=== PATIENT | male | born 1945 | race Caucasian/White ===

== ENCOUNTER 2016-04-14 13:30 | Day surgery (SDC) | payer MEDICARE, OTHER ==
[2016-04-14] MEDS ORDERED: LACTATED RINGERS 1,000 ML IV ONE (14:33)
[2016-04-14] MEDS ORDERED: BENZOCAINE/TETRACAINE/BUTAMBEN SPRAY 56 GM TOP ONE (16:34)
[2016-04-14] MEDS ORDERED: LIDO GARGLE 30 ML BOTTLE PO ONE (16:35)
[2016-04-14] MEDS ORDERED: MIDAZOLAM 2 MG/2 ML VIAL IVP ONE (17:00)
[2016-04-14] MEDS ORDERED: fentaNYL 100 MCG/2 ML VIAL IVP ONE (17:00)
== END 2016-04-14 13:31 | disposition home or self-care (01) ==
PROC: 0DB68ZX Excision of Stomach, Via Natural or Artificial Opening Endoscopic, Diagnostic (ICD-10-PCS; 2016-04-14)
PROC: 0DB58ZX Excision of Esophagus, Via Natural or Artificial Opening Endoscopic, Diagnostic (ICD-10-PCS; principal; 2016-04-14 14:25)
DX: R10.13 Epigastric pain (principal); K92.1 Melena; K21.9 Gastro-esophageal reflux disease without esophagitis; R12 Heartburn; K44.9 Diaphragmatic hernia without obstruction or gangrene; Z79.82 Long term (current) use of aspirin; G47.33 Obstructive sleep apnea (adult) (pediatric); Z85.46 Personal history of malignant neoplasm of prostate; Z87.891 Personal history of nicotine dependence; K29.70 Gastritis, unspecified, without bleeding; I10 Essential (primary) hypertension
CPT/HCPCS: 43239; 87081; A9270; J7120

== ENCOUNTER 2016-06-04 11:12 | Outpatient (CLI) | payer MEDICARE, OTHER | END 2016-06-04 11:13 | DX: E11.9 Type 2 diabetes mellitus without complications (principal) ==

== ENCOUNTER 2016-07-21 09:35 | Outpatient (CLI) | payer MEDICARE, OTHER | END 2016-07-21 09:36 | disposition home or self-care (01) | DX: G47.33 Obstructive sleep apnea (adult) (pediatric) (principal) | CPT/HCPCS: 99203; G0463 ==

== ENCOUNTER 2016-07-23 11:25 | Day surgery (SDC) | payer MEDICARE, OTHER ==
[2016-07-23] MEDS ORDERED: LACTATED RINGERS 1,000 ML IV ONE (12:03)
[2016-07-23] MEDS ORDERED: fentaNYL 100 MCG/2 ML VIAL IVP ONE (13:18)
[2016-07-23] MEDS ORDERED: MIDAZOLAM 2 MG/2 ML VIAL IVP ONE (13:18)
== END 2016-07-23 11:26 | disposition home or self-care (01) ==
PROC: 0DB68ZX Excision of Stomach, Via Natural or Artificial Opening Endoscopic, Diagnostic (ICD-10-PCS; 2016-07-23)
PROC: 0DB38ZX Excision of Lower Esophagus, Via Natural or Artificial Opening Endoscopic, Diagnostic (ICD-10-PCS; principal; 2016-07-23 12:30)
DX: K22.710 Barrett's esophagus with low grade dysplasia (principal); K44.9 Diaphragmatic hernia without obstruction or gangrene; K21.9 Gastro-esophageal reflux disease without esophagitis; I10 Essential (primary) hypertension; E11.9 Type 2 diabetes mellitus without complications; Z79.82 Long term (current) use of aspirin
CPT/HCPCS: 43239; J7120

== ENCOUNTER 2016-08-08 21:46 | Outpatient (CLI) | payer MEDICARE, OTHER | END 2016-08-08 21:47 | disposition home or self-care (01) | LOC: SC 21:46 | PROVIDERS: ATTEND Internal Medicine Pulmonary Disease | DX: G47.33 Obstructive sleep apnea (adult) (pediatric) (principal); G47.61 Periodic limb movement disorder; Z68.30 Body mass index [BMI] 30.0-30.9, adult | CPT/HCPCS: 95810 ==

== ENCOUNTER 2016-09-08 14:59 | Outpatient (CLI) | payer MEDICARE, OTHER | END 2016-09-08 15:00 | disposition home or self-care (01) | LOC: SC 14:59 | PROVIDERS: ATTEND Internal Medicine Pulmonary Disease | DX: G47.33 Obstructive sleep apnea (adult) (pediatric) (principal) | CPT/HCPCS: 99213; G0463; 99212 ==

== ENCOUNTER 2016-10-02 21:47 | Outpatient (CLI) | payer MEDICARE, OTHER | END 2016-10-02 21:48 | disposition home or self-care (01) | LOC: SC 21:47 | PROVIDERS: ATTEND Internal Medicine Pulmonary Disease | DX: G47.33 Obstructive sleep apnea (adult) (pediatric) (principal); G47.61 Periodic limb movement disorder; Z68.30 Body mass index [BMI] 30.0-30.9, adult | CPT/HCPCS: 95811 ==

== ENCOUNTER 2016-10-20 14:58 | Outpatient (CLI) | payer MEDICARE, OTHER | END 2016-10-20 14:59 | disposition home or self-care (01) | LOC: SC 14:58 | PROVIDERS: ATTEND Internal Medicine Pulmonary Disease | DX: G47.33 Obstructive sleep apnea (adult) (pediatric) (principal) | CPT/HCPCS: 99213; G0463; 99212 ==

== ENCOUNTER 2016-12-16 15:10 | Outpatient (CLI) | payer MEDICARE, OTHER | END 2016-12-16 15:11 | disposition home or self-care (01) | LOC: SC 15:10 | PROVIDERS: ATTEND Nurse Practitioner Family | DX: G47.33 Obstructive sleep apnea (adult) (pediatric) (principal) | CPT/HCPCS: 99214; G0463; 99212 ==

== ENCOUNTER 2017-07-22 07:08 | Day surgery (SDC) | payer MEDICARE, OTHER ==
[2017-07-22] MEDS ORDERED: LACTATED RINGERS 1,000 ML IV ONE (07:21)
[2017-07-22] MEDS ORDERED: MIDAZOLAM 2 MG/2 ML VIAL IVP ONE (08:38)
[2017-07-22] MEDS ORDERED: fentaNYL 100 MCG/2 ML VIAL IVP ONE (08:38)
[2017-07-22 09:24] VITALS: BP 126/81
== END 2017-07-22 07:09 | disposition home or self-care (01) ==
LOC: SDS 07:08
PROVIDERS: ATTEND Internal Medicine
PROC: 0DB58ZX Excision of Esophagus, Via Natural or Artificial Opening Endoscopic, Diagnostic (ICD-10-PCS; principal; 2017-07-22 08:30)
DX: K44.9 Diaphragmatic hernia without obstruction or gangrene (principal); K22.70 Barrett's esophagus without dysplasia; E11.9 Type 2 diabetes mellitus without complications; I10 Essential (primary) hypertension; K21.9 Gastro-esophageal reflux disease without esophagitis; Z87.891 Personal history of nicotine dependence
CPT/HCPCS: 43239; J7120; 88305

== ENCOUNTER 2017-12-25 07:59 | Outpatient (CLI) | payer MEDICARE, OTHER ==
[2017-12-25 12:15] LABS: BASOPHILS # (AUTO) 0.1 10^3/uL (0.0-0.1); BASOPHILS % (AUTO) 1.2 %; EOSINOPHILS # (AUTO) 0.7 10^3/uL (0.0-0.7); EOSINOPHILS % (AUTO) 12.1 %; HGB - HEMOGLOBIN 16.6 g/dL (14.0-18.0); LYMPHOCYTES # (AUTO) 1.5 10^3/uL (1.5-3.5); LYMPHOCYTES % (AUTO) 25.6 %; MEAN CORPUSCULAR HEMOGLOBIN 29.9 pg (27.0-31.0); MEAN CORPUSCULAR HGB CONC 34.4 g/dL (32.0-36.0); MEAN CORPUSCULAR VOLUME 86.9 fL (80.0-94.0); MEAN PLATELET VOLUME 8.6 fL (7.4-11.4); MONOCYTES # (AUTO) 0.4 10^3/uL (0.0-1.0); MONOCYTES % (AUTO) 7.9 %; NEUTROPHILS % (AUTO) 53.2 %; PLT - PLATELET COUNT 221 10^3/uL (130-450); RED BLOOD COUNT 5.54 10^6/uL (4.70-6.10); RED CELL DISTRIBUTION WIDTH 13.8 % (12.0-15.0); WHITE BLOOD COUNT 5.7 x10^3/uL (4.8-10.8)
[2017-12-25 12:52] LABS: ALBUMIN 4.2 g/dL (3.2-5.5); ALBUMIN/GLOBULIN RATIO 1.4 (1.0-2.2); ALKALINE PHOSPHATASE 66 IU/L (42-121); ALT ALANINE AMINOTRANSFERASE 25 IU/L (10-60); AST ASPARTATE AMINOTRANSFERASE 22 IU/L (10-42); BILIRUBIN,TOTAL 0.8 mg/dL (0.2-1.0); BUN - BLOOD UREA NITROGEN 18 mg/dL (6-20); CALCIUM 9.2 mg/dL (8.5-10.3); CARBON DIOXIDE - CO2 29 mmol/L (21-32); CHLORIDE 103 mmol/L (101-111); CHOL/HDL RATIO 3.9 (<5.0); CHOLESTEROL 234 mg/dL; CREATININE 1.2 mg/dL (0.6-1.2); GFR - MDRD 60 (>89); GLUCOSE 152 mg/dL (70-100); HDL CHOLESTEROL 60 mg/dL; LDL CHOLESTEROL,CALCULATED 128 mg/dL; LDL/HDL RATIO 2.1 (<3.6); SODIUM 140 mmol/L (135-145); TOTAL PROTEIN 7.2 g/dL (6.7-8.2); VLDL CHOLESTEROL 46 mg/dL
[2017-12-25 13:29] LABS: HEMOGLOBIN A1C 0.81 g/dL; HEMOGLOBIN A1C % 6.3 % (4.6-6.2)
== END 2017-12-25 08:00 | disposition home or self-care (01) ==
LOC: LAB.WCP 07:59
PROVIDERS: ATTEND Family Medicine
DX: R41.3 Other amnesia (principal); E11.9 Type 2 diabetes mellitus without complications; C61 Malignant neoplasm of prostate; K22.710 Barrett's esophagus with low grade dysplasia; G47.30 Sleep apnea, unspecified
CPT/HCPCS: 36415; 80053; 80061; 82043; 83036; 83721; 84153; 84443; 85025

== ENCOUNTER 2018-02-04 10:29 | Outpatient (CLI) | payer MEDICARE, OTHER | END 2018-02-04 10:30 | disposition home or self-care (01) | LOC: SC 10:29 | PROVIDERS: ATTEND Nurse Practitioner Family | DX: G47.33 Obstructive sleep apnea (adult) (pediatric) (principal) | CPT/HCPCS: 99213; G0463; 99212 ==

== ENCOUNTER 2018-04-14 08:00 | Outpatient (CLI) | payer MEDICARE, OTHER ==
[2018-04-16 13:07] LABS: HEPATITIS C ANTIBODY NON-REACTIVE (NON-REACTIVE)
== END 2018-04-14 23:59 | disposition home or self-care (01) ==
LOC: LAB.WCP 08:00
PROVIDERS: ATTEND Family Medicine
DX: Z00.00 Encounter for general adult medical examination without abnormal findings (principal)
CPT/HCPCS: 36415; 86803

== ENCOUNTER 2020-07-31 08:00 | Outpatient (CLI) | payer MEDICARE, OTHER ==
[2020-07-31 12:34] LABS: ESTIMATED AVERAGE GLUCOSE 154 mg/dL (70-100)
[2020-07-31 13:02] LABS: BASOPHILS # (AUTO) 0.1 10^3/uL (0.0-0.1); BASOPHILS % (AUTO) 1.1 %; EOSINOPHILS # (AUTO) 0.4 10^3/uL (0.0-0.7); EOSINOPHILS % (AUTO) 7.9 %; HCT - HEMATOCRIT 49.7 % (42.0-52.0); HGB - HEMOGLOBIN 16.4 g/dL (14.0-18.0); LYMPHOCYTES # (AUTO) 1.4 10^3/uL (1.5-3.5); LYMPHOCYTES % (AUTO) 25.3 %; MEAN CORPUSCULAR HEMOGLOBIN 29.3 pg (27.0-31.0); MEAN CORPUSCULAR VOLUME 88.9 fL (80.0-94.0); MEAN PLATELET VOLUME 10.5 fL (7.4-11.4); MONOCYTES # (AUTO) 0.4 10^3/uL (0.0-1.0); MONOCYTES % (AUTO) 7.2 %; NEUTROPHILS # (AUTO) 3.2 10^3/uL (1.5-6.6); NEUTROPHILS % (AUTO) 58.1 %; PLT - PLATELET COUNT 243 10^3/uL (130-450); RED BLOOD COUNT 5.59 10^6/uL (4.70-6.10); WHITE BLOOD COUNT 5.5 x10^3/uL (4.8-10.8)
[2020-07-31 13:30] LABS: ALBUMIN 4.2 g/dL (3.2-5.5); ALBUMIN/GLOBULIN RATIO 1.4 (1.0-2.2); ALKALINE PHOSPHATASE 67 IU/L (42-121); ALT ALANINE AMINOTRANSFERASE 28 IU/L (10-60); AST ASPARTATE AMINOTRANSFERASE 25 IU/L (10-42); BILIRUBIN,TOTAL 0.9 mg/dL (0.2-1.0); BUN - BLOOD UREA NITROGEN 14 mg/dL (6-20); CALCIUM 9.3 mg/dL (8.5-10.3); CARBON DIOXIDE - CO2 28 mmol/L (21-32); CHLORIDE 104 mmol/L (101-111); CHOL/HDL RATIO 3.1 (<5.0); CHOLESTEROL 199 mg/dL; CREATININE 1.1 mg/dL (0.6-1.2); GFR - MDRD 66 (>89); GLUCOSE 134 mg/dL (70-100); HDL CHOLESTEROL 65 mg/dL; LDL CHOLESTEROL,CALCULATED 116 mg/dL; LDL/HDL RATIO 1.8 (<3.6); POTASSIUM 4.2 mmol/L (3.5-5.0); SODIUM 141 mmol/L (135-145); TOTAL PROTEIN 7.1 g/dL (6.7-8.2); TRIGLYCERIDES 91 mg/dL; VLDL CHOLESTEROL 18 mg/dL
[2020-07-31 13:32] LABS: THYROID STIMULATING HORMONE 1.51 uIU/mL (0.34-5.60)
== END 2020-07-31 23:59 | disposition home or self-care (01) ==
LOC: LAB.WCP 08:00
PROVIDERS: ATTEND Family Medicine
DX: I10 Essential (primary) hypertension (principal); R73.03 Prediabetes; K22.710 Barrett's esophagus with low grade dysplasia; G47.30 Sleep apnea, unspecified; C61 Malignant neoplasm of prostate; E78.5 Hyperlipidemia, unspecified
CPT/HCPCS: 36415; 80053; 80061; 83036; 83721; 84153; 84443; 85025

== ENCOUNTER 2021-03-07 08:43 | Outpatient (CLI) | payer MEDICARE, OTHER ==
[2021-03-07 13:30] LABS: ESTIMATED AVERAGE GLUCOSE 183 mg/dL (70-100)
[2021-03-07 13:31] LABS: CALCIUM 9.5 mg/dL (8.5-10.3); CREATININE 1.1 mg/dL (0.6-1.2)
== END 2021-03-07 23:59 | disposition home or self-care (01) ==
LOC: LAB.WCP 08:43
PROVIDERS: ATTEND Family Medicine
DX: E11.9 Type 2 diabetes mellitus without complications (principal)
CPT/HCPCS: 36415; 80048; 83036

== ENCOUNTER 2021-03-13 08:02 | Outpatient (CLI) | payer MEDICARE, OTHER ==
--- NOTE | 2021-03-13 09:40 | XRAY Report ---
PROCEDURE: Chest 2 View X-Ray INDICATIONS: SHORTNESS OF BREATH TECHNIQUE: 2 view(s) of the chest. COMPARISON: None. FINDINGS: SUPPORT DEVICES: None. LUNGS/PLEURA: No focal consolidation, pleural effusion or space-occupying pneumothorax. MEDIASTINUM: The cardiomediastinal silhouette is within normal limits. BONES/SOFT TISSUES: No acute abnormality. IMPRESSION: 1.No acute cardiopulmonary abnormality. Reviewed by: Cheng Quinn MD on 03/13/2021 9:39 AM [facility] Approved by: Cheng Quinn MD on 03/13/2021 9:39 AM [facility] Station ID: [id number]
== END 2021-03-13 08:03 | disposition home or self-care (01) ==
LOC: DI.N 08:02
PROVIDERS: ATTEND Family Medicine
DX: R06.2 Wheezing (principal)

== ENCOUNTER 2021-06-21 11:04 | Outpatient (CLI) | payer MEDICARE, OTHER ==
[2021-06-21 12:02] VITALS: BP 130/73
--- NOTE | 2021-06-21 12:02 | SLEEP CARE CONSULTATION ---
Information from patient questionnaire entered by Rubio Rasmussen MA. I have reviewed and concur with the information entered by Rubio Rasmussen MA. This document represents the service I personally performed and the decisions made by me, Wendie Reyna ARNP. History of Present Illness Service Date and Time: 06/21/2021 1104 Reason for Visit: New patient (LAST SEEN IN 2018, CURRENTLY ON CPAP, RELL (ROTECH), ), sleep apnea on CPAP therapy, Other (UPDATE SUPPLIES) Chief Complaint: reports: Other (Update supplies) Usual bedtime: 900-700 Snores at night: Yes Observed to quit breathing while asleep: Yes Sleeps alone due to snoring: No Number of times waking at night: 2 Reasons for waking at night: reports: Bathroom Toss, Turn, or Twitch while sleeping: Yes Recalls having dreams: Yes Usually gets out of bed at: 0730 Feels refreshed in the morning: Yes Morning headache: No Sleepy or fatigued during the day: Yes Ever fallen asleep while driving: No Takes day naps: Yes Dreams during day naps: No Prior sleep studies: Yes (2016, POLY) Year and Where: [facility], 2005 Additional HPI information: JOSEE ZARAGOZA was previously diagnosed to have mild, AHI 10.3, obstructive sleep apnea-hypopnea syndrome and comes in today to re-establish care for CPAP therapy. - Parasomnia Symptoms Ever been unable to move upon waking from sleep: No Walks in sleep: No Talks in sleep: No Ever acted out dreams in sleep: No Ever felt weak in the knees when startled or emotional: No Bothered by creepy, crawly, restless sensations in legs: No Problems with memory or concentration: Yes CPAP Compliance Data Compliance data discussion: SEE DATA FROM RELL, 09/2018 - 03/2019, ROTECH, 98.3 COMPLIANT, AHI 3.7 with pressure set at 8.0 cmH2O. Patient is not happy with [employer] who have not wanted to deal with him since his machine is on a recall. He uses a Dreamwear Wisp mask. He is needing supplies. He is eligible for a new device in 10/2021. He has for life who may go ahead and replace his recalled device. He has been using a Remstar he borrowed because of the Dreamstation being on recall. Subjective Missed days of use due to: reports: other (recall) Patient concerns: denies: aerophagia, mask discomfort, air blowing in eyes, mask leak noise, condensation in mask/hose, nasal congestion, dry mouth, nose, throat, epistaxis, other Observed to snore while using device: No Current pressure setting perceived as: comfortable On therapy, patient: reports: sleeping better, awakening more refreshed, being more awake and alert during the day, more rested overall. 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 Patient is and lives in [place]. Have you smoked in the past 12 months: No Alcohol use: Yes Alcohol amount and frequency: 1-4 X WEEKLY Caffeine use: Yes Caffeine amount and frequency: 2 X DAILY Family History Family history of sleep disordered breathing: Yes Family Hx Sleep Apnea: Sibling: Sleep apnea - Treated Allergies and Home Medications Known drug allergies: No Drug allergies reviewed: Yes Home medication list reviewed: Yes Allergy and home medication list: Allergies lactose Adverse Reaction (Verified 07/23/16 12:14) Rash peanuts Adverse Reaction (Uncoded 07/23/16 12:14) Edema Medications: Lisinopril 10 mg Pantoprazole 40 mg Aspirin 81 mg Review of Systems Weight loss over past 5 years: 10 lbs Urinary: reports: frequency Ear/Nose/Throat: reports: wisdom teeth removed Musculoskeletal: reports: joint pain Immunologic: reports: sneezing, allergies to food or environment Physical Exam Vital signs obtained and entered by: Hayden RASMUSSEN CMA AAWI Blood Pressure: 130/73 (RIGHT, PULSE 77, RESP 18, ) Cuff size: wrist Heart Rate: 74 O2 Saturation: 97 (PAPER) Height: 5 ft 10 in Weight: 200 lb Body Mass Index: 28.7 BMI Classification: Overweight Impression and Plan 1. Obstructive Sleep Apnea-Hypopnea Syndrome, mild, with probable good treatment compliance and unknown apnea control. On CPAP therapy, the patient has better sleep quality and is more rested overall. He has a Dreamstation that is on the recall that he has not been using since February 2021. He has been using an old RemStar by [employer] for the last 4+ months regularly. Patient has already registered their device for the recall. Patient denies any black particles seen in machine or hoses, any unusual odors coming from device. Patient has not experienced any physical symptoms such as upper airway irritation, headache, skin or eye irritation, asthma, nausea/vomiting, difficulty breathing or chest pain. If patient is not able to sleep due to waking up choking, gasping for air or other respiratory distress that they may decide to continue using it until it is either replaced or repaired. Since the patients current machine is almost 5 years old, updated , the patient would like to try to update their device with a device that is not on the recall. He also has Medicare and [employer] which may replace the recalled device sooner. I will write a prescription order to update machine and supplies. Compliance guidelines for new device and follow up discussed. Patient would like to change from his current DME. Patient was informed that another DME can be used. I will have my systems coordinator inform of DME options. A DWO prescription will then be made. Patient advised to contact this office if further supply problems. Patient voiced understanding and agreement with plan. Patient's apnea severity and rationale for treatment to reduce apnea, improve sleep quality and reduce cardiovascular and cerebrovascular events was reviewed. I also reviewed the benefit of consistent device use of CPAP for hypertension and gastric reflux. Patient was encouraged to try to lose weight. * Continue CPAP pressure at 8 cmH2O * Update machine * Update supplies * Transfer DME * Notify me if snoring with mask or feeling that the pressure is too much or too little * Attempt to lose weight * Call this office if any problems using CPAP * Return for follow up one month after obtaining new device, or sooner if concerns arise Counseling Topics: Spare mask, Weight loss health impact Visit Type: In Office Time Spent with Patient (minutes): 36 Provider Statement: I spent 100% of the Face to Face Visit with the patient with greater than 50% spent counseling the patient and coordination of care.
== END 2021-06-21 11:05 | disposition home or self-care (01) ==
LOC: SC 11:04
PROVIDERS: ATTEND Nurse Practitioner Family
DX: G47.33 Obstructive sleep apnea (adult) (pediatric) (principal); E66.3 Overweight; Z68.28 Body mass index [BMI] 28.0-28.9, adult
CPT/HCPCS: 99203; G0463; 99212

== ENCOUNTER 2021-09-03 09:43 | Outpatient (CLI) | payer MEDICARE, OTHER ==
[2021-09-03 11:57] LABS: BASOPHILS % (AUTO) 0.7 %; EOSINOPHILS # (AUTO) 0.5 10^3/uL (0.0-0.7); EOSINOPHILS % (AUTO) 8.5 %; HCT - HEMATOCRIT 50.1 % (42.0-52.0); HGB - HEMOGLOBIN 16.8 g/dL (14.0-18.0); LYMPHOCYTES # (AUTO) 1.3 10^3/uL (1.5-3.5); MEAN CORPUSCULAR HEMOGLOBIN 29.3 pg (27.0-31.0); MEAN CORPUSCULAR HGB CONC 33.5 g/dL (32.0-36.0); MEAN CORPUSCULAR VOLUME 87.4 fL (80.0-94.0); MEAN PLATELET VOLUME 10.1 fL (7.4-11.4); MONOCYTES # (AUTO) 0.4 10^3/uL (0.0-1.0); MONOCYTES % (AUTO) 6.8 %; NEUTROPHILS # (AUTO) 3.2 10^3/uL (1.5-6.6); NEUTROPHILS % (AUTO) 59.8 %; PLT - PLATELET COUNT 230 10^3/uL (130-450); RED BLOOD COUNT 5.73 10^6/uL (4.70-6.10); RED CELL DISTRIBUTION WIDTH 13.3 % (12.0-15.0); WHITE BLOOD COUNT 5.4 x10^3/uL (4.8-10.8)
[2021-09-03 12:16] LABS: ALBUMIN 4.1 g/dL (3.2-5.5); ALBUMIN/GLOBULIN RATIO 1.3 (1.0-2.2); ALKALINE PHOSPHATASE 62 IU/L (42-121); ALT ALANINE AMINOTRANSFERASE 40 IU/L (10-60); AST ASPARTATE AMINOTRANSFERASE 24 IU/L (10-42); BILIRUBIN,TOTAL 0.8 mg/dL (0.2-1.0); BUN - BLOOD UREA NITROGEN 15 mg/dL (6-20); CALCIUM 9.6 mg/dL (8.5-10.3); CARBON DIOXIDE - CO2 30 mmol/L (21-32); CHLORIDE 103 mmol/L (101-111); CHOL/HDL RATIO 3.6 (<5.0); CHOLESTEROL 208 mg/dL; CREATININE 1.2 mg/dL (0.6-1.2); GFR - MDRD 59 (>89); GLUCOSE 166 mg/dL (70-100); HDL CHOLESTEROL 58 mg/dL; LDL CHOLESTEROL,CALCULATED 134 mg/dL; LDL/HDL RATIO 2.3 (<3.6); POTASSIUM 4.4 mmol/L (3.5-5.0); SODIUM 141 mmol/L (135-145); TOTAL PROTEIN 7.3 g/dL (6.7-8.2); TRIGLYCERIDES 79 mg/dL; VLDL CHOLESTEROL 16 mg/dL
[2021-09-03 12:17] LABS: THYROID STIMULATING HORMONE 1.21 uIU/mL (0.34-5.60)
[2021-09-03 12:22] LABS: ESTIMATED AVERAGE GLUCOSE 174 mg/dL (70-100); HEMOGLOBIN A1c% 7.7 % (4.27-6.07)
== END 2021-09-03 09:44 | disposition home or self-care (01) ==
LOC: LAB.N 09:43
PROVIDERS: ATTEND Family Medicine
DX: C61 Malignant neoplasm of prostate (principal); R06.02 Shortness of breath; E11.9 Type 2 diabetes mellitus without complications; I10 Essential (primary) hypertension
CPT/HCPCS: 36415; 80053; 80061; 83036; 83721; 84153; 84443; 85025

== ENCOUNTER 2022-06-12 08:39 | Outpatient (CLI) | payer MEDICARE, OTHER ==
[2022-06-12 12:03] LABS: CALCIUM 9.5 mg/dL (8.5-10.3); CREATININE 1.1 mg/dL (0.6-1.2); POTASSIUM 4.3 mmol/L (3.5-5.0)
[2022-06-12 12:43] LABS: ESTIMATED AVERAGE GLUCOSE 148 mg/dL (70-100); HEMOGLOBIN A1c% 6.8 % (4.27-6.07)
== END 2022-06-12 08:40 | disposition home or self-care (01) ==
LOC: LAB.N 08:39
PROVIDERS: ATTEND Family Medicine
DX: E11.65 Type 2 diabetes mellitus with hyperglycemia (principal)
CPT/HCPCS: 36415; 80048; 83036

== ENCOUNTER 2022-07-03 14:50 | Outpatient (CLI) | payer MEDICARE, OTHER ==
[2022-07-03] MEDS ORDERED: ALBUTEROL 1 PUFF INH STA (17:21)
== END 2022-07-03 14:51 | disposition home or self-care (01) ==
LOC: RT 14:50
PROVIDERS: ATTEND Family Medicine
DX: R06.02 Shortness of breath (principal)
CPT/HCPCS: 94060; 94729

== ENCOUNTER 2022-07-07 14:39 | Outpatient (CLI) | payer MEDICARE, OTHER ==
--- NOTE | 2022-07-07 15:07 | XRAY Report ---
PROCEDURE: Chest 2 View X-Ray INDICATIONS: SOB TECHNIQUE: 2 views of the chest were acquired. COMPARISON: Chest x-ray 1222 FINDINGS: Surgical changes and devices: None. Lungs and pleura: No pleural effusions or pneumothorax. Lungs are clear. Mediastinum: Mediastinal contours appear normal. Heart size is minimally prominent. Bones and chest wall: No suspicious bony lesions. Overlying soft tissues appear unremarkable. IMPRESSION: No acute pulmonary process. Reviewed by: Demetra Kurtz MD on 07/07/2022 3:06 PM PDT Approved by: Demetra Kurtz MD on 07/07/2022 3:06 PM PDT Station ID: [id number]
== END 2022-07-07 14:40 | disposition home or self-care (01) ==
LOC: DI 14:39
PROVIDERS: ATTEND Family Medicine
DX: R06.02 Shortness of breath (principal)

== ENCOUNTER 2022-08-27 07:56 | Outpatient (CLI) | payer MEDICARE, OTHER | END 2022-08-27 07:57 | disposition home or self-care (01) | LOC: DI 07:56 | PROVIDERS: ATTEND Family Medicine | DX: R06.02 Shortness of breath (principal); I08.2 Rheumatic disorders of both aortic and tricuspid valves | CPT/HCPCS: 93306 ==

== ENCOUNTER 2022-09-17 09:37 | Outpatient (CLI) | payer MEDICARE, OTHER ==
[2022-09-17 12:25] LABS: CALCIUM 9.6 mg/dL (8.5-10.3); CREATININE 1.1 mg/dL (0.6-1.2); POTASSIUM 4.1 mmol/L (3.5-5.0)
== END 2022-09-17 09:38 | disposition home or self-care (01) ==
LOC: LAB.N 09:37
PROVIDERS: ATTEND Family Medicine
DX: R06.09 Other forms of dyspnea (principal)
CPT/HCPCS: 36415; 80048; 83880

== ENCOUNTER 2022-12-10 09:36 | Outpatient (CLI) | payer MEDICARE, OTHER ==
--- NOTE | 2022-12-10 10:00 | Sleep Patient Instructions ---
Sleep Center Visit Summary - Patient Visit Information Reason for Visit: Annual visit for PAP therapy - Patient Instructions Additional Instructions: You will continue with CPAP therapy with pressure set at 8 cmH2O. A supply prescription will be updated with your DME. We encourage you to continue to try to lose weight. Please follow up with the sleep care office in 1 year. - Clinic Information Contact: [facility] [address] [place] [address] [email or web address] T: [phone]
--- NOTE | 2022-12-10 10:03 | SLEEP CARE CONSULTATION ---
Information from patient questionnaire entered by Yuni Voss. I have reviewed and concur with the information entered by Yuni Voss. This document represents the service I personally performed and the decisions made by , Wendie Reyna ARNP. History of Present Illness Service Date and Time: 12/10/2022 0936 Previous diagnosis: Mild, Obstructive Sleep Apnea-Hypopnea Syndrome AHI: 10.3 (2016) Reason for follow up: annual (LAST SEEN 06/2021) Equipment type: CPAP (ResMed Airsense 10, s/u 03/2022; NEEDED SD CARD) Equipment obtained from: Other ([facility]; getting supplies as needed) Mask style: Nasal (extra large; over the nose) Backup mask available: Yes (old mask) Last cushion change: 2 months Prior sleep studies: Yes (2016, POLY) Year and Where: [facility], 2005 HPI additional information: JOSEE ZARAGOZA was diagnosed to have mild, AHI 10.3, obstructive sleep apnea- hypopnea syndrome and returned today with spouse for CPAP therapy annual follow- up. Sleep Study - Results Prior sleep studies: Yes (2016, POLY) Year and Where: [facility], 2005 CPAP Compliance Data - Data Reviewed with Patient Average duration of nightly device use: 10 hours 49 minutes Compliance rate %: 84 (152/180 days used) Current pressure setting (cmH2O): 8 Average residual AHI: 2.4 Central apnea: 0.2 Obstructive apnea: 1 Hypopnea: 0.7 Average large leak: 12.9 L/min Compliance data discussion: Uses his Dreamstation that has been recertified on days he is not using his ResMed because he is traveling. Subjective Missed days of use due to: reports: travel, other (using other CPAP) Patient concerns: denies: aerophagia, mask discomfort, air blowing in eyes, mask leak noise, condensation in mask/hose, nasal congestion, dry mouth, nose, throat, epistaxis Observed to snore while using device: No Current pressure setting perceived as: comfortable On therapy, patient: reports: sleeping better, awakening more refreshed, being more awake and alert during the day, more rested overall. denies: drowsiness while driving Initial Austin Sleepiness Scale score: 4 (05/2021) Current Austin Sleepiness Scale score: 5 (12/10/22) Allergies and Home Medications Known drug allergies: No Drug allergies reviewed: Yes Home medication list reviewed: Yes (no changes) Allergy and home medication list: Allergies lactose Adverse Reaction (Verified 12/09/22 13:33) Rash peanuts Adverse Reaction (Uncoded 12/09/22 13:33) Edema Review of Systems Review of systems same as previous: Yes (N/A) Physical Exam Vital signs obtained and entered by: ELLA Johnson MA Blood Pressure: 138/80 (LEFT ARM) Cuff size: regular Heart Rate: 82 O2 Saturation: 96 Height: 5 ft 10 in Weight: 216 lb 6.4 oz Body Mass Index: 31.0 BMI Classification: Obese Impression and Plan 1. Obstructive Sleep Apnea-Hypopnea Syndrome, mild, with good treatment compliance and good apnea control. On CPAP therapy, the patient has better sleep quality and is more rested overall. Patient has significant improvement of their sleep apnea and is satisfied with current CPAP therapy. Patient denies problems with oral dryness, nasal congestion, epistaxis, skin irritation or aerophagia. Patient's apnea severity and rationale for treatment to reduce apnea, improve sleep quality and reduce cardiovascular and cerebrovascular events was reviewed. I also reviewed the benefit of consistent device use of CPAP for hypertension, borderline diabetes and gastric reflux. 2. Obesity, unspecified. Currently patients BMI is 31. Obesity increases the risk of apnea, CPAP pressure requirements and overall health risks especially cardiovascular and diabetes. Thus patient is advised to lose weight. * Continue CPAP pressure at 8 cmH2O * Update supplies * Notify me if snoring with mask or feeling that the pressure is too much or too little * Attempt to lose weight * Call this office if any problems using CPAP * Return for follow up in 1 year, or sooner if concerns arise Counseling Topics: Spare mask, Weight loss health impact Prescriptions: Device supplies Follow up with Sleep Care in: 1 year Visit Type: In Office Time Spent with Patient (minutes): 14 Provider Statement: I spent 100% of the Face to Face Visit with the patient with greater than 50% spent counseling the patient and coordination of care.
[2022-12-10 10:05] VITALS: BP 138/80; O2SAT 96
== END 2022-12-10 09:37 | disposition home or self-care (01) ==
LOC: SC 09:36
PROVIDERS: ATTEND Nurse Practitioner Family
DX: G47.33 Obstructive sleep apnea (adult) (pediatric) (principal); E66.9 Obesity, unspecified; Z68.31 Body mass index [BMI] 31.0-31.9, adult
CPT/HCPCS: 99212; G0463

== ENCOUNTER 2023-02-09 09:23 | Outpatient (CLI) | payer MEDICARE, OTHER ==
[2023-02-09 12:19] LABS: BASOPHILS % (AUTO) 0.7 %; EOSINOPHILS # (AUTO) 0.3 10^3/uL (0.0-0.7); EOSINOPHILS % (AUTO) 5.3 %; HCT - HEMATOCRIT 53.1 % (42.0-52.0); HGB - HEMOGLOBIN 17.6 g/dL (14.0-18.0); LYMPHOCYTES # (AUTO) 1.8 10^3/uL (1.5-3.5); LYMPHOCYTES % (AUTO) 32.3 %; MEAN CORPUSCULAR HEMOGLOBIN 29.3 pg (27.0-31.0); MEAN CORPUSCULAR HGB CONC 33.1 g/dL (32.0-36.0); MEAN CORPUSCULAR VOLUME 88.5 fL (80.0-94.0); MEAN PLATELET VOLUME 10.3 fL (7.4-11.4); MONOCYTES # (AUTO) 0.3 10^3/uL (0.0-1.0); MONOCYTES % (AUTO) 5.3 %; NEUTROPHILS # (AUTO) 3.1 10^3/uL (1.5-6.6); NEUTROPHILS % (AUTO) 56.2 %; PLT - PLATELET COUNT 258 10^3/uL (130-450); RED CELL DISTRIBUTION WIDTH 13.3 % (12.0-15.0); WHITE BLOOD COUNT 5.5 x10^3/uL (4.8-10.8)
[2023-02-09 12:38] LABS: ALBUMIN 4.5 g/dL (3.2-5.5); ALBUMIN/GLOBULIN RATIO 1.7 (1.0-2.2); ALKALINE PHOSPHATASE 75 IU/L (42-121); ALT ALANINE AMINOTRANSFERASE 24 IU/L (10-60); AST ASPARTATE AMINOTRANSFERASE 18 IU/L (10-42); BILIRUBIN,TOTAL 0.6 mg/dL (0.2-1.0); BUN - BLOOD UREA NITROGEN 16 mg/dL (6-20); CARBON DIOXIDE - CO2 31 mmol/L (21-32); CHLORIDE 103 mmol/L (101-111); CHOL/HDL RATIO 3.5 (<5.0); CHOLESTEROL 170 mg/dL; CREATININE 1.3 mg/dL (0.6-1.3); GFR - MDRD 54 (>89); GLUCOSE 137 mg/dL (74-104); HDL CHOLESTEROL 49 mg/dL; LDL CHOLESTEROL,CALCULATED 104 mg/dL; LDL/HDL RATIO 2.1 (<3.6); POTASSIUM 4.5 mmol/L (3.5-4.5); SODIUM 139 mmol/L (135-145); TOTAL PROTEIN 7.1 g/dL (6.4-8.9); TRIGLYCERIDES 84 mg/dL (48-352); VLDL CHOLESTEROL 17 mg/dL
[2023-02-09 12:46] LABS: ESTIMATED AVERAGE GLUCOSE 143 mg/dL (70-100); HEMOGLOBIN A1c% 6.6 % (4.27-6.07)
[2023-02-09 12:48] LABS: THYROID STIMULATING HORMONE 1.08 uIU/mL (0.34-5.60)
[2023-02-09 12:53] LABS: CREATININE,URINE 224.1 mg/dL; MICROALBUM/CREATININE RATIO,UR 12.5 ug/mg (<30.0); MICROALBUMIN,URINE 2.8 mg/dL
== END 2023-02-09 09:24 | disposition home or self-care (01) ==
LOC: LAB.N 09:23
PROVIDERS: ATTEND Family Medicine
DX: I10 Essential (primary) hypertension (principal); R06.09 Other forms of dyspnea; E11.65 Type 2 diabetes mellitus with hyperglycemia; C61 Malignant neoplasm of prostate
CPT/HCPCS: 36415; 80053; 80061; 82043; 82570; 83036; 83721; 84153; 84443; 85025

== ENCOUNTER 2023-02-16 06:24 | Day surgery (SDC) | payer MEDICARE, OTHER ==
[2023-02-16] MEDS ORDERED: PROPOFOL 500 MG/50 ML 0 MG/0 ML VIAL ONE (06:46)
[2023-02-16] MEDS ORDERED: ceFAZolin 2 GM VIAL ONE (06:47)
[2023-02-16] MEDS ORDERED: LACTATED RINGERS 1,000 ML IV ONE (06:51)
[2023-02-16] MEDS ORDERED: BUPIVACAINE 0.25% PF 30 ML VIAL ONE (07:12)
[2023-02-16] MEDS ORDERED: BUPIVACAINE 0.5%-EPI 1:200000 PF 30 ML VIAL ONE (07:13)
[2023-02-16] MEDS ORDERED: LIDOCAINE 1%-EPI 1:100000 20 ML MDV ONE (07:13)
[2023-02-16 07:22] VITALS: BP 148/83; O2SAT 91
== END 2023-02-16 06:25 | disposition home or self-care (01) ==
LOC: SDS 06:24
PROVIDERS: ATTEND Surgery
DX: R00.0 Tachycardia, unspecified (principal); Z53.8 Procedure and treatment not carried out for other reasons
CPT/HCPCS: 93005; J7120

== ENCOUNTER 2023-02-16 07:37 | Emergency (ER) | payer MEDICARE, OTHER ==
[2023-02-16] MEDS ORDERED: SODIUM CHLORIDE 0.9% 1,000 ML IV STA (07:56)
--- NOTE | 2023-02-16 07:59 | ED Physician Documentation ---
History of Present Illness - Stated complaint Stated Complaint: EKG CHANGES - Chief complaint Chief Complaint: Cardiac - History obtained from History obtained from: Patient, Other (PACU nurse Keena) - Additonal information Additional information: Patient is a 77-year-old male presenting for evaluation of tachycardia. He was scheduled for an outpatient procedure today by Dr. Camacho to have a lipoma removed. While in PACU they noted that he was tachycardic with a heart rate of 1 10-1 15. Patient did report having had sinus congestion for the past few days. They did an EKG which showed sinus tachycardia with an incomplete left bundle branch block and recommended he come to the emergency department for further evaluation. He does have a history of hypertension, diabetes. He denies chest pain or shortness of air. He has had some issues with feeling short of breath since February when he had a COVID infection. This summer he did have a full work-up by cardiology including an echocardiogram in August which showed a normal EF as well as an evaluation by [facility] for clearance in order to have this surgery.Today he denies chest pain or shortness of air. He has been feeling under the weather for the past few days with sinus congestion and sometimes a productive cough of clear to yellow sputum. Per patient and his he has had decreased p.o. intake for the past few days with less of an appetite. He has been n.p.o. since about 5 PM yesterday. Denies vomiting or diarrhea, no dizziness, no leg swelling or pain.He did not take a COVID test prior to his scheduled outpatient surgery today. Review of Systems Constitutional: denies: Fever Nose: reports: Congestion Cardiac: denies: Chest pain / pressure Respiratory: reports: Cough. denies: Dyspnea GI: denies: Abdominal Pain Musculoskeletal: denies: Extremity swelling PD PAST MEDICAL HISTORY - Past Medical History Past Medical History: Yes Cardiovascular: Hypertension, High cholesterol Respiratory: Sleep apnea, CPAP use Endocrine/Autoimmune: Type 2 diabetes GI: GERD : Other HEENT: Chronic vision loss, Chronic hearing loss Psych: None Musculoskeletal: Osteoarthritis Derm: None - Past Surgical History Past Surgical History: Yes General: Colonoscopy, EGD - Present Medications Home Medications: Ambulatory Orders Medication Instructions Recorded Confirmed Aspirin [Aspir-Low] 81 mg PO DAILY 04/11/16 02/16/23 Glipizide [Glipizide Xl] 5 mg PO DAILY 04/11/16 02/16/23 lisinopriL [Lisinopril] 10 mg PO DAILY 04/11/16 02/16/23 Pantoprazole [Protonix] 40 mg PO DAILY 02/11/23 02/16/23 metFORMIN [Glucophage] 500 mg PO DAILY 02/11/23 02/16/23 Atorvastatin Calcium 40 mg PO DAILY 02/16/23 02/16/23 - Allergies Allergies/Adverse Reactions: Allergies Allergy/AdvReac Type Severity Reaction Status Date / Time lactose AdvReac Rash Verified 02/16/23 07:43 peanuts AdvReac Edema Uncoded 02/16/23 06:48 - Social History Does the pt smoke?: No Smoking Status: Never smoker - Immunizations Immunizations are current?: Yes PD ED PE NORMAL - General General: Alert and oriented X 3, No acute distress, Well developed/nourished - HEENT HEENT: Atraumatic - Neck Neck: Supple, no meningeal sign - Cardiac Cardiac: Other (Tachycardic, regular rhythm, heart rate in the low 100s) - Respiratory Respiratory: No respiratory distress, Clear bilaterally - Abdomen Abdomen: Normal bowel sounds, Soft, Non tender, Non distended - Derm Derm: Warm and dry - Extremities Extremities: No edema, No calf tenderness / cord - Neuro Neuro: Normal speech Results - Vitals Vitals: Vital Signs - 24 hr 02/16/23 02/16/23 07:44 09:22 Temperature 36.5 C 36.9 C Heart Rate 103 H 97 Respiratory 16 20 Rate Blood Pressure 131/81 H 152/91 H O2 Saturation 97 99 Oxygen O2 Source Room air - EKG (time done) 0657 EKG releavant findings:: EKG personally interpreted by author of this note. Relevant findings are: Rate 108, sinus tachycardia, left bundle branch block, no STEMI, no ST depressions; None prior in our system - Labs Labs: Laboratory Tests 02/16/23 02/16/23 02/16/23 07:30 07:30 07:30 WBC 12.9 H RBC 5.74 Hgb 16.7 Hct 51.6 MCV 89.9 MCH 29.1 MCHC 32.4 RDW 12.8 Plt Count 262 MPV 10.1 Neut # (Auto) 10.4 H Lymph # (Auto) 1.3 L Kent # (Auto) 0.9 Eos # (Auto) 0.2 Baso # (Auto) 0.0 Absolute Nucleated RBC 0.00 Nucleated RBC % 0.0 Sodium 136 Potassium 4.1 Chloride 100 L Carbon Dioxide 27 Anion Gap 9.0 BUN 12 Creatinine 1.0 Estimated GFR (MDRD) 73 L Glucose 150 H Calcium 9.9 Total Bilirubin 0.9 AST 10 ALT 14 Alkaline Phosphatase 72 Total Protein 7.1 Albumin 4.1 Globulin 3.0 Albumin/Globulin Ratio 1.4 Nasal Adenovirus (PCR) NOT DETECTED Nasal B. parapertussis DNA (PCR) NOT DETECTED Nasal Coronavir 229E PCR NOT DETECTED Nasal Coronavir HKU1 PCR NOT DETECTED Nasal Coronavir NL63 PCR NOT DETECTED Nasal Coronavir OC43 PCR NOT DETECTED Nasal Enterovir/Rhinovir PCR NOT DETECTED Nasal Influenza B PCR NOT DETECTED Nasal Influenza A PCR NOT DETECTED Nasal Parainfluen 1 PCR NOT DETECTED Nasal Parainfluen 2 PCR NOT DETECTED Nasal Parainfluen 3 PCR NOT DETECTED Nasal Parainfluen 4 PCR NOT DETECTED Nasal RSV (PCR) DETECTED A Nasal B.pertussis DNA PCR NOT DETECTED Nasal C.pneumoniae (PCR) NOT DETECTED Jonathan Human Metapneumo PCR NOT DETECTED Nasal M.pneumoniae (PCR) NOT DETECTED Nasal SARS-CoV-2 (PCR) NOT DETECTED PD Medical Decision Making - ED course Complexity details: reviewed results, re-evaluated patient, d/w patient, d/w family ED course: Patient is a 77-year-old male presenting for evaluation of tachycardia noticed in the PACU prior to an elective surgery. He has recently had URI symptoms with congestion and cough. He is mildly tachycardic here with a heart rate in the low 100s. EKG demonstrates sinus tachycardia. He does not have dizziness, chest pain or shortness of air. He has had decreased oral intake over the past few days as he has been feeling unwell with cold-like symptoms. He has not taken a COVID test. CBC, chemistries were obtained and reviewed. No significant findings. Chest x-ray which I reviewed is unremarkable. His respiratory swab is positive for RSV. His heart rate is improved after IV fluids. He does not have any symptoms to suggest pulmonary embolism. Discussed continued supportive care for his RSV including maintaining adequate hydration as well as close follow-up with his primary care provider. Patient and family are counseled on concerning symptoms to return for. Departure - Departure Disposition: 01 Home, Self Care Clinical Impression: RSV (respiratory syncytial virus infection), Sinus tachycardia Condition: Stable Instructions: ED Viral Syndrome Comments: You have tested positive for RSV which is a respiratory virus. This is likely the cause of your symptoms of congestion and a cough. I do not see signs of pneumonia on your chest x-ray. Your heart rate was a little fast this morning which is likely from less oral intake In the recent days. We have given you IV fluids and your heart rate has improved. Please continue with staying hydrated and getting plenty of rest through the course of your illness. Return to the emergency department with any symptoms such as labored breathing or dizziness or chest pain. You will need to reschedule your surgery with Dr. Camacho and I would not recommend trying to have elective surgery in the future if you are feeling unwell even with cold symptoms. Forms: PCP List Discharge Date/Time: 02/16/23 09:32
--- NOTE | 2023-02-16 08:12 | XRAY Report ---
PROCEDURE: Chest 1 View X-Ray INDICATIONS: tachycardia TECHNIQUE: One view of the chest was acquired. COMPARISON: Chest radiograph on July 07, 2022. FINDINGS: Surgical changes and devices: None. Lungs and pleura: No pleural effusions or pneumothorax. Lungs are clear. Mediastinum: Mediastinal contours appear stable compared to prior. Heart size is normal. Bones and chest wall: No suspicious bony lesions. Overlying soft tissues appear unremarkable. IMPRESSION: No acute cardiopulmonary process. Reviewed by: Danelle Gee MD on 02/16/2023 8:11 AM PST Approved by: Danelle Gee MD on 02/16/2023 8:11 AM PST Station ID: [id number]
[2023-02-16 08:17] LABS: BASOPHILS % (AUTO) 0.3 %; EOSINOPHILS # (AUTO) 0.2 10^3/uL (0.0-0.7); EOSINOPHILS % (AUTO) 1.5 %; HCT - HEMATOCRIT 51.6 % (42.0-52.0); HGB - HEMOGLOBIN 16.7 g/dL (14.0-18.0); LYMPHOCYTES # (AUTO) 1.3 10^3/uL (1.5-3.5); LYMPHOCYTES % (AUTO) 9.9 %; MEAN CORPUSCULAR HEMOGLOBIN 29.1 pg (27.0-31.0); MEAN CORPUSCULAR HGB CONC 32.4 g/dL (32.0-36.0); MEAN CORPUSCULAR VOLUME 89.9 fL (80.0-94.0); MEAN PLATELET VOLUME 10.1 fL (7.4-11.4); MONOCYTES # (AUTO) 0.9 10^3/uL (0.0-1.0); MONOCYTES % (AUTO) 7.1 %; NEUTROPHILS # (AUTO) 10.4 10^3/uL (1.5-6.6); NEUTROPHILS % (AUTO) 80.8 %; PLT - PLATELET COUNT 262 10^3/uL (130-450); RED BLOOD COUNT 5.74 10^6/uL (4.70-6.10); RED CELL DISTRIBUTION WIDTH 12.8 % (12.0-15.0); WHITE BLOOD COUNT 12.9 x10^3/uL (4.8-10.8)
[2023-02-16 08:32] LABS: ALBUMIN 4.1 g/dL (3.2-5.5); ALBUMIN/GLOBULIN RATIO 1.4 (1.0-2.2); BILIRUBIN,TOTAL 0.9 mg/dL (0.2-1.0); CALCIUM 9.9 mg/dL (8.5-10.3); POTASSIUM 4.1 mmol/L (3.5-4.5); TOTAL PROTEIN 7.1 g/dL (6.4-8.9)
[2023-02-16 09:05] LABS: B. PARAPERTUSSIS- RESP PCR PAN NOT DETECTED; B. PERTUSSIS- RESP PCR PANEL NOT DETECTED; C. PNEUMONIAE- RESP PCR PANEL NOT DETECTED; CORONAVIRUS 229E-RESP PCR NOT DETECTED; CORONAVIRUS HKU1-RESP PCR NOT DETECTED; CORONAVIRUS NL63-RESP PCR NOT DETECTED; CORONAVIRUS OC43-RESP PCR NOT DETECTED; HUMAN METAPNEUMOVIRUS NOT DETECTED; INFLUENZA A- RESP PCR PANEL NOT DETECTED; INFLUENZA B - RESP PCR PANEL NOT DETECTED; M. PNEUMONIAE- RESP PCR PANEL NOT DETECTED; PARAINFLUENZA VIRUS 1 NOT DETECTED; PARAINFLUENZA VIRUS 2 NOT DETECTED; PARAINFLUENZA VIRUS 3 NOT DETECTED; PARAINFLUENZA VIRUS 4 NOT DETECTED; RHINOVIRUS/ENTEROVIRUS NOT DETECTED; RSV- RESP PCR PANEL DETECTED; SARS-CoV-2 -RESP PCR PANEL NOT DETECTED
[2023-02-16 09:30] VITALS: BP 152/91; O2SAT 99
== END 2023-02-16 09:32 | disposition home or self-care (01) ==
LOC: ED 07:37
DX: R05.9 Cough, unspecified (principal); R09.81 Nasal congestion; B97.4 Respiratory syncytial virus as the cause of diseases classified elsewhere; R00.0 Tachycardia, unspecified; Z53.8 Procedure and treatment not carried out for other reasons
CPT/HCPCS: 36415; 71045; 80053; 85025; 87633; 93005; 99283; 99284; J7120

== ENCOUNTER 2023-04-30 11:17 | Day surgery (SDC) | payer MEDICARE, OTHER ==
[2023-04-30] MEDS ORDERED: ceFAZolin 2 GM VIAL ONE (11:22)
[2023-04-30] MEDS: LACTATED RINGERS 1,000 ML IV ONE (11:46)
[2023-04-30] MEDS: BUPIVACAINE 0.25% PF 10 ML VIAL SUBQ ONE ×2 (12:01)
[2023-04-30] MEDS ORDERED: LIDOCAINE 1%-EPI 1:100000 20 ML MDV ONE (12:02)
[2023-04-30] MEDS ORDERED: BUPIVACAINE 0.25% PF 10 ML VIAL ONE (12:02)
[2023-04-30] MEDS: LIDOCAINE 1%-EPI 1:100000 20 ML MDV SUBQ ONE ×2 (12:04)
--- NOTE | 2023-04-30 12:34 | ANESTHESIA ---
Pre-Anesthesia VS, & Labs - Diagnosis back cyst x 2 - Procedure excision of back cyst x 2 Vital Signs: Temp Pulse Resp BP Pulse Ox O2 Flow Rate 36.1 C L 74 16 168/92 H 98 04/30/23 11:39 04/30/23 11:39 04/30/23 11:39 04/30/23 11:39 04/30/23 11:39 Height: 5 ft 11 in Weight (kg): 93.6 kg Body Mass Index: 28.8 BMI Classification: Overweight - NPO >8 hours - Lab Results Current Lab Results: Laboratory Tests 04/30/23 11:42: POC Whole Bld Glucose 118 H Lab results reviewed: Yes Home Medications and Allergies Aspirin [Aspir-Low] 81 mg PO DAILY 04/11/16 Glipizide [Glipizide Xl] 5 mg PO DAILY 04/11/16 lisinopriL [Lisinopril] 40 mg PO DAILY 04/11/16 Pantoprazole [Protonix] 40 mg PO DAILY 02/11/23 metFORMIN [Glucophage] 500 mg PO DAILY 02/11/23 Atorvastatin Calcium 40 mg PO DAILY 02/16/23 Allergies/Adverse Reactions: Allergies Allergy/AdvReac Type Severity Reaction Status Date / Time lactose AdvReac Rash Verified 02/16/23 07:43 peanuts AdvReac Intermediate Emesis Uncoded 04/28/23 14:50 Anes History & Medical History - Anesthetic History Anesthesia Complications: reports: No previous complications - Medical History Cardiovascular: reports: Hypertension, High cholesterol Pulmonary: reports: Sleep apnea, CPAP use Gastrointestinal: reports: GERD, Colon polyps Urinary: reports: Other Neuro: reports: None Musculoskeletal: reports: Osteoarthritis Endocrine/Autoimmune: reports: Type 2 diabetes Skin: reports: None Smoking Status: Never smoker Psychosocial: reports: Alcohol (3-4 beers per day) History of Cancer?: Yes (prostate) - Surgical History General: reports: Colonoscopy, EGD Other Past Surgical History: brachytherapy for prostate Exam General: Alert, Oriented x3, Cooperative, No acute distress Dental: Poor dentition Mouth Openin Fingerbreadth Neck Mobility: Normal Mallampati classification: I Thyromental Distance: 4-6 cm Mental/Cognitive Status: Alert/Oriented X3, Normal for patient Plan Anesthesia Type: MAC Consent for Procedure(s) Verified and Reviewed: Yes Code Status: Attempt Resuscitation ASA classification: 3-Severe systemic disease Is this case an emergency?: No
[2023-04-30] MEDS ORDERED: MIDAZOLAM 2 MG/2 ML VIAL ONE ×2 (12:38→12:39)
[2023-04-30] MEDS ORDERED: PROPOFOL 200 MG/20 ML VIAL IVP ONE (12:39)
[2023-04-30] MEDS ORDERED: fentaNYL 100 MCG/2 ML VIAL ONE (12:39)
--- NOTE | 2023-04-30 12:50 | HISTORY & PHYSICAL EXAMINATION ---
Chief Complaint - Chief Complaint Chief Complaint: history back cysts with infection History of Present Illness - History Obtained From Records Reviewed: yes History obtained from: pt Exam Limitations: none - History of Present Illness HPI Comment/Other: history back cysts with infection. here for excision History - Past Medical History Cardiovascular: reports: Hypertension, High cholesterol Respiratory: reports: Sleep apnea, CPAP use Neuro: reports: None Endocrine/Autoimmune: reports: Type 2 diabetes GI: reports: GERD, Colon polyps : reports: Other HEENT: reports: Chronic vision loss, Chronic hearing loss Psych: reports: None Musculoskeletal: reports: Osteoarthritis Derm: reports: None MRSA Hx?: No - Past Surgical History General: reports: Colonoscopy, EGD Other past surgical history: brachytherapy for prostate Meds/Allgy - Home Medications Home Medications: Ambulatory Orders Medication Instructions Recorded Confirmed Aspirin [Aspir-Low] 81 mg PO DAILY 04/11/16 04/30/23 Glipizide [Glipizide Xl] 5 mg PO DAILY 04/11/16 04/28/23 lisinopriL [Lisinopril] 40 mg PO DAILY 04/11/16 04/28/23 Pantoprazole [Protonix] 40 mg PO DAILY 02/11/23 04/28/23 metFORMIN [Glucophage] 500 mg PO DAILY 02/11/23 04/28/23 Atorvastatin Calcium 40 mg PO DAILY 02/16/23 04/28/23 - Allergies Allergies/Adverse Reactions: Allergies Allergy/AdvReac Type Severity Reaction Status Date / Time lactose AdvReac Rash Verified 02/16/23 07:43 peanuts AdvReac Intermediate Emesis Uncoded 04/28/23 14:50 Review of Systems - Other Findings Other Findings: feels well. no problems. 10 pt ros as above otherwise unremarkable Exam - Vital Signs Vital Signs: Vital Signs x48h Temp Pulse Resp BP Pulse Ox 04/30/23 11:39 36.1 C L 74 16 168/92 H 98 - Physical Exam General Appearance: positive: No acute distress, Alert Eyes Bilateral: positive: PERRL, EOMI ENT: positive: No signs of dehydration Neck: positive: No JVD, Trachea midline Respiratory: positive: No respiratory distress Cardiovascular: positive: Regular rate & rhythm Abdomen: positive: No distention Back: positive: Other (2 epidermal inclusion cysts mid back) Neurologic/Psychiatric: positive: Oriented x3 Conclusion/Plan - Problem List (1) Epidermal inclusion cyst Conclusion/Plan: plan excision. parq held and consent obtained - Lab Results Lab results reviewed: Yes
[2023-04-30] MEDS: LACTATED RINGERS 500 ML IV ONE ×2 (13:51→14:21)
[2023-04-30] MEDS ORDERED: HYDROcod/ACETAM 5/325 MG TABLET PO PRN (13:56)
--- NOTE | 2023-04-30 13:59 | OPERATIVE REPORT ---
Operative Report - General Procedure Date: 04/30/23 Planned Procedure: excision back epidermal inclusion cysts Pre-Op Diagnosis: 1.5 and 2.5 cm epidermal inclusion cysts back Procedure Performed: excision epidermal inclusion cysts, 3 cm incision and 2 cm incision closed intermediate repair Post Op Diagnosis: same - Procedure Note Anesthesia Technique: Local, MAC Pathology: benign. not sent Estimated Blood Loss (mL): 1 Drain/Tube Type: Other (none) Indications: pain, inflammation, prior infection Findings: as above Complications: none - Other Other Information/Narrative: The patient was properly identified brought to the operating room and placed in right lateral decubitus position. He was carefully padded. Monitored anesthesia care and sedation was given. He was prepped and draped in a sterile fashion and given preoperative antibiotics. He had 2 epidermal inclusion cyst nearly midline. Upper midline epidermal inclusion cyst had scant drainage and mild inflammation. This is new from when seen in the office. He had a prior infection of the larger and lower mid back epidermal inclusion cyst. The I&D site was well-healed and the cyst again palpable. Upper cyst measured approximately 1.5 cm and lower cyst measured approximately 2.5 cm. Elliptical incisions measuring approximately 2 cm and 3 cm were made around the 2 cyst. The 2 cyst were removed intact including surrounding scar tissue. Hemostasis was assured with cautery. Intermediate repair was performed with buried interrupted 2-0 Vicryl and and buried interrupted 3-0 Vicryl. Skin was reap proximated with buried interrupted 4-0 Monocryl. Dressings were applied. He tolerated the procedure well repositioned him self onto the stretcher and was brought to recovery in good condition.
[2023-04-30 14:24] VITALS: BP 132/75; O2SAT 96
--- NOTE | 2023-04-30 16:21 | ANESTHESIA POST OP EVALUATION ---
Anesthesia Post Eval - Post Anesthesia Eval Vitals: Last Vital Signs Temp 36.8 C 04/30/23 14:15 Pulse 68 04/30/23 14:15 Resp 16 04/30/23 14:15 BP 132/75 H 04/30/23 14:15 Pulse Ox 96 04/30/23 14:15 O2 Flow Rate CV Function Including HR & BP: Stable Pain Control: Satisfactory Nausea & Vomiting: Negative Mental Status: Baseline Respiratory Status: Airway Patent Hydration Status: Satisfactory Anesthesia Complications: None
== END 2023-04-30 11:18 | disposition home or self-care (01) ==
LOC: SDS 11:17
PROVIDERS: ATTEND Surgery
DX: L72.0 Epidermal cyst (principal); E11.9 Type 2 diabetes mellitus without complications; Z79.84 Long term (current) use of oral hypoglycemic drugs
CPT/HCPCS: 11402; 11403; 12032; J7120